=== PATIENT | female | born 1985 | race Caucasian/White ===

== ENCOUNTER 2020-12-04 15:03 | Emergency (ER) | payer SELFPAY ==
[~2020-12-04] VITALS: Ht 177.8 cm; Wt 136.7 kg
[2020-12-04 15:03] VITALS: BP 122/62
[2020-12-04] MEDS ORDERED: AZIT500T5 (15:16)
[2020-12-04] MEDS ORDERED: PANT20TA6 (15:20)
[2020-12-04] MEDS ORDERED: BENZ-18 (15:20)
[2020-12-04] MEDS ORDERED: ALBU8.5H (15:20)
[2020-12-04] MEDS ORDERED: PRED20TA (15:20)
== END 2020-12-04 18:30 | disposition left against medical advice (07) ==
LOC: M ED 15:03
DX: Z53.21 Procedure and treatment not carried out due to patient leaving prior to being seen by health care provider (principal)

== ENCOUNTER → 2021-05-07 | Outpatient (CLI) | payer OTHER ==
[~2021-05-07] MED LIST: ALBU8.5H; AZIT500T5; BENZ-18; E-Z-GAS II EFFERVESCENT PACKET (SODIUM BICARB./CITRIC ACID/SIMETHICONE) As Ordered ONE; E-Z-HD 98% w/w 340GM SUSP BTL As Ordered ONE; E-Z-PAQUE 96% w/w SUSP 176GM BTL As Ordered ONE; PANT20TA6; PRED20TA
== END ==
LOC: M RAD 08:42
PROVIDERS: ATTEND Physician Assistant Medical
DX: R13.10 Dysphagia, unspecified (principal)